=== PATIENT | male | born 1990 | race African-American/Black ===

== ENCOUNTER 2017-02-19 22:13 | Emergency (ER) | payer OTHER, MEDICAID ==
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
[~2017-02-19 22:13] MED LIST: IBUPROFEN800 MG PO; NO MEDICATIONS
== END 2017-02-19 23:41 | disposition home or self-care (01) ==
LOC: SED 22:13
DX: S46.912A Strain of unspecified muscle, fascia and tendon at shoulder and upper arm level, left arm, initial encounter (principal); F17.200 Nicotine dependence, unspecified, uncomplicated; V89.2XXA Person injured in unspecified motor-vehicle accident, traffic, initial encounter; Y92.410 Unspecified street and highway as the place of occurrence of the external cause
CPT/HCPCS: 70450; 73030; 99284